=== PATIENT | female | born 1995 | race Caucasian/White ===

== ENCOUNTER 2016-05-03 14:41 | Emergency (ER) | payer MEDICAID ==
[~2016-05-03] VITALS: Ht 157.5 cm; Wt 56.6 kg
[2016-05-03 15:30] VITALS: Ht 157.5 cm; Wt 56.6 kg
[2016-05-03 19:32] LABS: URINE BLOOD (Dip) POC 1+ (NEGATIVE)
[2016-05-03] MEDS ORDERED: POLY10DR19 BOTH EYES (20:02)
[2016-05-03] MEDS ORDERED: ACET325T33 PO (20:02)
[2016-05-03] MEDS ORDERED: CEPH-443 PO (20:02)
--- NOTE | 2016-05-03 20:10 | ERD ---
ER Documentation Chief Complaint Date/Time DATE: 05/03/16 TIME: 20:09 Chief Complaint Painful urination, ST, eye redness. HPI Patient is here accompanied with her daughter who has similar symptoms. Patient has cough with phlegm she had sore throat. She also complains of burning with urination. Complains of chest congestion and sticky discharge from the eyes when she wakes up. No fevers or chills. Last menstrual period was around March 31. ROS All systems reviewed and are negative except as per history of present illness. Medications Home Meds Active Scripts Acetaminophen* (Tylenol*) 325 Mg Tablet, 2 TAB PO Q8 Y for PAIN AND OR ELEVATED TEMP, #20 TAB Prov:VALENTIN CARPENTER DO 05/03/16 Polymyxin B Sulfate-TMP* (Polymyxin B-TMP Eye Drops*) 10 Ml Drops, 1 DROP BOTH EYES QID for 7 Days, EA Prov:VALENTIN CARPETNER DO 05/03/16 Cephalexin* (Keflex*) 500 Mg Capsule, 500 MG PO TID for 5 Days, CAP Prov:VALENTIN CARPENTER DO 05/03/16 Allergies Allergies: Coded Allergies: No Known Allergy (Unverified , 05/03/16) PMhx/Soc Hx Alcohol Use: No Hx Substance Use: No Hx Tobacco Use: No Smoking Status: Never smoker Physical Exam Vitals Vital Signs Date Time Temp Pulse Resp B/P Pulse Ox O2 Delivery O2 Flow Rate FiO2 05/03/16 15:30 98.0 82 18 112/72 95 Physical Exam Const: [Alert oriented 4, well-nourished well-developed nontoxic- appearing no apparent distress, interacts appropriately] Head: [Normocephalic/atraumatic, no scalp lesions] Eyes: [Normal Conjunctiva, PERRLA, EOMI no conjunctival injection no conjunctival discharge] ENT: [Normal External Ears, Nose and Mouth, no tonsillar exudates no tonsillar erythema no tonsillar edema oropharynx no erythema. bilateral ear canals are patent, bilateral tympanic membranes nonerythematous.] Neck: [Full range of motion. No meningismus. No cervical lymphadenopathy] Resp: [Clear to auscultation bilaterally, no wheezes rhonchi or rales, breathing normally, no tachypnea no nasal flaring no grunting no accessory muscle use no retractions] Cardio: [Regular rate and rhythm, no murmurs] Abd: [Soft, non tender, non distended. Normal bowel sounds, no rebound rigidity or guarding. Normoactive bowel sounds no flank tenderness, negative McBurney's negative Bauer sign.] Skin: [No petechiae or rashes, no hives no urticaria no abscess no laceration no new warmth] Back: [No midline or flank tenderness, full range of motion without pain ] Ext: [No cyanosis, clubbing or edema] Neuro: M/S: Alert and oriented 4. Face: EOMI, face and pharynx with normal sensation and function Motor: Normal strength throughout, muscle strength is 5 out of 5 bilateral upper extremity and bilateral lower extremity Sensation: Normal sensation throughout Speech: Normal Cerebel: Normal coordination Normal gait DTR: 2+ and symmetric upper/lower extremities Psych: [Normal Mood and Affect, no suicidal ideation or homicide ideation] Results 24 hrs Laboratory Tests Test 05/03/16 19:32 Bedside Urine Blood 1+ Bedside Urine Glucose (UA) Negative Bedside Urine Ketones (LAB) Trace Bedside Urine Leukocyte Esterase (L 1+ Bedside Urine Nitrite (LAB) Negative Bedside Urine Protein (LAB) 1+ Bedside Urine pH (LAB) 5.5 Procedures/MDM Her urine test is positive for . She does have 1+ leukocyte Estrace so she has a UTI-like and I will treat her with antibiotics of Keflex. Will send for urine culture. She likely has a viral URI but that if she has a bacterial bronchitis antibiotics will help as well. Recommend supportive care for her URI. Fluids rest Tylenol. Also gave antibiotic eyedrops to cover for possible bacterial conjunctivitis. She has no vaginal bleeding or pelvic pain so I did not feel she required ultrasound at this point. She has no related symptoms so she should follow-up with her SIGNAL MAINTAINER and family practice doctor outpatient. Departure Diagnosis: Primary Impression: Acute UTI Additional Impressions: Acute URI Weeks of gestation: less than 8 weeks Qualified Code: Z3A.01 - Less than 8 weeks gestation of Condition: Stable Patient Instructions: Understanding Urinary Tract Infections (UTIs), What Is Bronchitis?, , New Dx Referrals: [facility] Usted se kearney hecho un examen mdico de control que le indica que no est en basilio condicin que requiera tratamiento urgente en el Departamento de Emergencia. Un estudio ms profundo y el tratamiento de boykin condicin pueden esperar sin ningn riesgo hasta que usted sea atendida/o en el consultorio de boykin mdico o basilio cl alberta. Es responsabilidad suya arreglar basilio lucinda para el seguimiento del dariel. MANEJO DE CONDICIONES NO URGENTES EN EL FUTURO 1) Si usted tiene un mdico de atencin primaria: Usted debera llamar a boykin mdico de atencin primaria antes de venir al departamento de emergencia. Despus de las horas de consultorio, boykin doctor o boykin asociado/a est disponible por telfono. El mdico o enfermero de mary en el servicio telefnico puede asesorarle por mata medio para atender el problema, o dariel contrario se puede programar basilio lucinda. 2) Si usted no tiene un mdico de atencin primaria: Llame al mdico o clnica de referencia que aparece abajo jaylyn las horas de consultorio para hacer basilio lucinda para que le vean. CLINICAS: [facility] [phone] [facility] [facility] [phone] [facility] [facility] [phone] [address] [facility]. [place] [id number] [phone] [facility] [place] [phone] [facility] [phone] [facility] () Usted se kearney hecho un examen mdico de control que le indica que no est en basilio condicin que requiera tratamiento urgente en el Departamento de Emergencia. Un estudio ms profundo y el tratamiento de boykin condicin pueden esperar sin ningn riesgo hasta que usted sea atendida/o en el consultorio de boykin mdico o basilio cl alberta. Es responsabilidad suya arreglar basilio lucinda para el seguimiento del dariel. MANEJO DE CONDICIONES NO URGENTES EN EL FUTURO 1) Si usted tiene un mdico de atencin primaria: Usted debera llamar a boykin mdico de atencin primaria antes de venir al departamento de emergencia. Despus de las horas de consultorio, boykin doctor o boykin asociado/a est disponible por telfono. El mdico o enfermero de mary en el servicio telefnico puede asesorarle por mata medio para atender el problema, o dariel contrario se puede programar basilio lucinda. 2) Si usted no tiene un mdico de atencin primaria: Llame al mdico o condado institucions de referencia que aparece abajo jaylyn las horas de consultorio para hacer basilio lucinda para que le vean. SI USTED NO PUEDE PAGAR PARA STANLEY UN MEDICO puede ir a: [facility] [address] [place] [address] [facility] [address] [place] [address] [facility] [address] [place] [address] [facility] [address] [place] [address] VALENTIN CARPENTER DO May 03, 2016 20:10
[2016-05-03 20:18] VITALS: BP 118/74; PULSE 74; RESP 14; TEMP 98
== END 2016-05-03 20:18 | disposition home or self-care (01) ==
LOC: FTE 14:41
DX: N39.0 Urinary tract infection, site not specified (principal); J06.9 Acute upper respiratory infection, unspecified; Z33.1 Pregnant state, incidental
CPT/HCPCS: 81003; 99284

== ENCOUNTER 2017-04-17 17:17 | Emergency (ER) | payer MEDICAID ==
[~2017-04-17] VITALS: Ht 154.9 cm; Wt 62.5 kg
[~2017-04-17 17:17] MED LIST: ACET325T33 PO; CEPH-443 PO; POLY10DR19 BOTH EYES
[2017-04-17 17:23] VITALS: Ht 154.9 cm; Wt 62.5 kg
[2017-04-17] MEDS ORDERED: morphine 4 MG/ML VIAL IV STA (18:43)
[2017-04-17] MEDS ORDERED: SOD CHLORIDE 0.9% 1,000 ML IV STA (18:43)
[2017-04-17] MEDS ORDERED: ONDANSETRON 4 MG INJ IV STA (18:43)
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
[2017-04-17 19:33] LABS: BASOPHILS % 0.4 % (0.0-2.0); EOSINOPHILS # 0.1 10^3/ul (0.0-0.5); EOSINOPHILS % 1.1 % (0.0-7.0); HEMATOCRIT 40.7 % (37.0-47.0); HEMOGLOBIN 13.9 g/dl (12.0-16.0); LYMPHOCYTES # 2.3 10^3/ul (0.8-2.9); MEAN CORPUSCULAR HEMOGLOBIN 30.6 pg (29.0-33.0); MEAN CORPUSCULAR HGB CONC 34.2 g/dl (32.0-37.0); MEAN CORPUSCULAR VOLUME 89.6 fl (82.0-101.0); MEAN PLATELET VOLUME 8.6 fl (7.4-10.4); MONOCYTE # 0.6 10^3/ul (0.3-0.9); MONOCYTES % 6.2 % (0.0-11.0); NEUTROPHIL # 6.7 10^3/ul (1.6-7.5); NEUTROPHILS % 68.9 % (39.0-77.0); PLATELET COUNT 381 10^3/UL (140-415); RED BLOOD COUNT 4.54 10^6/ul (4.20-5.40); RED CELL DISTRIBUTION WIDTH 11.9 % (11.5-14.5); WHITE BLOOD COUNT 9.8 10^3/ul (4.8-10.8)
[2017-04-17 19:58] LABS: ADD UMIC YES; UR ASCORBIC ACID NEGATIVE (NEGATIVE); UR BACTERIA FEW /HPF (NONE SEEN); UR BILIRUBIN (Dip) NEGATIVE (NEGATIVE); UR BLOOD (Dip) 3+ mg/dL (NEGATIVE); UR CLARITY CLEAR (CLEAR); UR COLOR STRAW (YELLOW); UR GLUCOSE (Dip) NEGATIVE (NEGATIVE); UR KETONES (Dip) NEGATIVE (NEGATIVE); UR LEUKOCYTE ESTERASE (Dip) TRACE Leu/ul (NEGATIVE); UR NITRITE (Dip) NEGATIVE (NEGATIVE); UR RBC 1 /HPF (0-5); UR SPECIFIC GRAVITY (Dip) 1.008 (1.003-1.030); UR SQUAMOUS EPITHELIAL CELL FEW /HPF (FEW); UR TOTAL PROTEIN (Dip) NEGATIVE (NEGATIVE); UR UROBILINOGEN (Dip) NEGATIVE (NEGATIVE)
[2017-04-17 20:07] LABS: ALBUMIN 4.4 g/dl (3.3-4.9); ALBUMIN/GLOBULIN RATIO 1.29; BILIRUBIN,INDIRECT 0.2 mg/dl (0-1.1); BILIRUBIN,TOTAL 0.2 mg/dl (0.2-1.3); CALCIUM 9.7 mg/dl (8.4-10.2); CREATININE 0.6 mg/dl (0.44-1.00); POTASSIUM 3.7 mmol/L (3.5-5.1); TOTAL PROTEIN 7.8 g/dl (6.1-8.1)
[2017-04-17] MEDS ORDERED: SOD CHLORIDE 0.9% 100 ML ONE (20:12)
[2017-04-17] MEDS ORDERED: IOHEXOL 300MG/ML 150 ML BTL ONE (20:12)
--- NOTE | 2017-04-17 20:26 | RADRPT ---
PROCEDURE: US Pelvis. CLINICAL INDICATION: Vaginal bleeding, abdominal pain. Last menstrual period 03/31/2017 TECHNIQUE: Multiple sonographic images of the pelvis were obtained utilizing a transabdominal and endovaginal technique. The images were reviewed on a PACS workstation. COMPARISON: None. FINDINGS: The uterus measures 7.1 x 4.2 x 4.4 cm and is unremarkable. The thickness of the endometrium equals 8.3 mm. The right ovary measures 2.7 x 1.8 x 2.2 cm and is unremarkable. The left ovary measures 2. 6 x 1.3 x 1.8 cm and is unremarkable. Color flow and spectral analysis demonstrates normal arterial flow in both ovaries. No adnexal mass or free intrapelvic fluid is seen. IMPRESSION: No abnormality seen. Please see above. RPTAT: HJES .Nate Crenshaw MD, Date Time Electronically viewed and signed by .Nate Crenshaw MD, on 04/17/2017 20:26 .S/
--- NOTE | 2017-04-17 20:53 | RADRPT ---
PROCEDURE: CT abdomen and pelvis with contrast. CLINICAL INDICATION: Abdominal Pain TECHNIQUE: CT scan of the abdomen and pelvis without contrast was performed and is reconstructed a t 2.5 mm contiguous axial intervals from the dome of the diaphragm to the inferior pubic rami.. The patient was scanned without intravenous contrast. Sagittal and coronal reformatted images were obt ained from the axial source images. The calculated radiation dose measures 418 mGy centimeters. The CTDI measures 8 mGy. Individualized dose optimization technique was used for the performance of this exam. This included 1. Automated exposure control. 2. Adjustment of the mA and / or kV according to the patient's size. 3. Use of iterative reconstructed technique. COMPARISON: None FINDINGS: The lung bases are clear of any infiltrate or nodule. No effusion is seen. The liver is of normal size, contour and attenuation with no mass or ductal dilatation. No gallston es are visualized. No splenic, adrenal or pancreatic abnormalities present. Kidneys are of normal size and contour. No hydronephrosis, calculus or masses seen. Ureters are o f normal course and caliber with no stone. No bladder mass or stone is present. Uterus appears norm al. No adnexal mass is present. There is no aneurysm. No adenopathy is present. No bowel mass or obstruction is present. The appendix is normal. No phlegmon, ascites or pneumop eritoneum is visualized. The osseous structures are intact. IMPRESSION: No evidence of urolithiasis, obstructive uropathy, diverticulitis or appendicitis. .Ortega Cordero MD, MD Date Time Electronically viewed and signed by .Ortega Cordero MD, on 04/17/2017 20:52 .A/
[2017-04-17] MEDS ORDERED: ACET500C5 PO (21:30)
[2017-04-17] MEDS ORDERED: HYDR-906 PO (21:30)
== END 2017-04-17 21:50 | disposition home or self-care (01) ==
LOC: FTE 17:17
DX: M79.81 Nontraumatic hematoma of soft tissue (principal); R10.2 Pelvic and perineal pain
CPT/HCPCS: 36415; 74177; 76830; 76856; 80053; 81001; 83690; 85025; 96361; 96374; 96375; J2270; J2405; J7030; Q9967; Z7502; Z7610

== ENCOUNTER 2017-06-09 22:17 | Emergency (ER) | END 2017-06-10 02:32 | disposition home or self-care (01) ==

== ENCOUNTER 2017-06-10 16:43 | Emergency (ER) | END 2017-06-10 19:36 | disposition home or self-care (01) ==